=== PATIENT | female | born 1985 | race Caucasian/White ===

== ENCOUNTER 2023-06-30 10:23 | Outpatient (CLI) | payer BC, SELFPAY | END 2023-06-30 10:24 | disposition home or self-care (01) | LOC: NFLDREF 07-01 09:46 | PROVIDERS: PCP Physician Assistant Medical; Referring Provider Physician Assistant Medical; Visit Provider Physician Assistant Medical | DX: Z00.00 Encounter for general adult medical examination without abnormal findings (principal); F41.9 Anxiety disorder, unspecified; Z97.5 Presence of (intrauterine) contraceptive device; Z13.0 Encounter for screening for diseases of the blood and blood-forming organs and certain disorders involving the immune mechanism; Z13.29 Encounter for screening for other suspected endocrine disorder; Z13.6 Encounter for screening for cardiovascular disorders | CPT/HCPCS: 80053; 80061; 84443 ==

== ENCOUNTER 2024-10-17 08:32 | Outpatient (CLI) | payer BC, SELFPAY | END 2024-10-17 08:33 | disposition home or self-care (01) | LOC: NFLDREF 10-22 03:41 | PROVIDERS: PCP Physician Assistant Medical; Referring Provider Physician Assistant Medical; Visit Provider Physician Assistant Medical | DX: Z13.228 Encounter for screening for other metabolic disorders (principal); Z13.220 Encounter for screening for lipoid disorders | CPT/HCPCS: 80048; 80061 ==